=== PATIENT | female | born 1975 | race Caucasian/White ===

== ENCOUNTER 2019-09-09 15:39 | Emergency (ER) | payer BC ==
[~2019-09-09] VITALS: Wt 80.0 kg
[2019-09-09 15:43] VITALS: BP 108/65; PULSE 65; RESP 18; Wt 80.0 kg
== END 2019-09-09 16:14 | disposition left against medical advice (07) ==
LOC: FTE 15:39
DX: Z53.21 Procedure and treatment not carried out due to patient leaving prior to being seen by health care provider (principal)